=== PATIENT | male | born 1950 | race Caucasian/White ===

== ENCOUNTER 2024-05-19 18:03 | Inpatient (IN) | payer MEDICARE, OTHER ==
[~2024-05-19] VITALS: Ht 190.5 cm; Wt 117.9 kg
[~2024-05-19 18:03] MED LIST: ACYCLOVIR800 MG PO; ALPRAZOLAM1 MG PO; AMBIEN CR12.5 MG PO; DOXYCYCLINE HY100 MG PO; HYDROCHLOROTHIA25 MG PO; LEVOCETIRIZINE D5 MG PO; LISINOPRIL10 MG PO; NEXIUM40 MG PO; NORCO 5-325 TA1 EACH PO; NUVIGIL250 MG PO; POTASSIUM CHLOR8 ME1 PO; TOPIRAMATE25 MG PO
[2024-05-19 18:39] LABS: BASOPHILS % 0.2 % (0.0-1.0); EOSINOPHILS % 0.2 % (0.0-6.0); HEMATOCRIT 41.7 % (38.2-49.6); LYMPHOCYTES # (AUTO) 0.5 (1.0-3.2); LYMPHOCYTES % 4.8 % (18.0-39.1); MEAN CORPUSCULAR HEMOGLOBIN 33.2 pg (28-32); MEAN CORPUSCULAR VOLUME 92.3 fL (81-99); MONOCYTES # (AUTO) 0.3 (0.2-0.8); MONOCYTES % 2.4 % (4.4-11.3); NEUTROPHILS # (AUTO) 9.9 (2.1-6.9); PLATELET COUNT 175 x10e3/uL (140-360); RED BLOOD COUNT 4.52 x10e6/uL (4.3-5.7); RED CELL DISTRIBUTION WIDTH 12.4 % (11.7-14.4); WHITE BLOOD COUNT 10.77 x10e3/uL (4.8-10.8)
[2024-05-19] MEDS: ACETAMINOPHEN 325 MG TAB PO ONE (18:47)
[2024-05-19] MEDS: SODIUM CHLORIDE 0.9% 1000ML 1,000 ML IV ONE ×2 (18:48→20:59)
[2024-05-19 18:57] LABS: ALBUMIN 3.7 g/dL (3.5-5.0); ALBUMIN/GLOBULIN RATIO 1.3 (0.8-2.0); ANION GAP 15.5 mmol/L (8-16); BILIRUBIN,TOTAL 1.2 mg/dL (0.2-1.2); CALCIUM 8.6 mg/dL (8.4-10.2); CREATININE, SERUM 0.86 mg/dL (0.72-1.25); POTASSIUM 3.5 mmol/L (3.5-5.1); TOTAL PROTEIN 6.5 g/dL (6.5-8.1)
[2024-05-19 19:01] LABS: BILIRUBIN,URINE NEGATIVE (NEGATIVE); CLARITY,URINE CLOUDY (CLEAR); COLOR,URINE YELLOW (YELLOW); GLUCOSE, URINE NEGATIVE (NEGATIVE); KETONES,URINE NEGATIVE (NEGATIVE); LEUKOCYTE ESTERASE ,URINE 2+ (NEGATIVE); NITRITE,URINE NEGATIVE (NEGATIVE); PH,URINE 5.5 (5 - 7); PROTEIN,URINE DIPSTICK NEGATIVE (NEGATIVE); URINE UROBILINOGEN 0.2 mg/dL (0.2 - 1)
[2024-05-19 19:03] LABS: TROPONIN I 0.005 ng/mL (0-0.300)
[2024-05-19 19:04] LABS: BACTERIA,URINE MANY /HPF; EPITHELIAL CELLS,URINE FEW /LPF; RBC,URINE >50 /HPF (0-5); WBC,URINE (MAN) >50 /HPF (0-5)
[2024-05-19 19:25] LABS: INFLUENZAE A&B ANTIGEN (RAPID) NEGATIVE (NEGATIVE); RESPIRATORY SYNC. VIRUS NEGATIVE (NEGATIVE)
[2024-05-19] MEDS ORDERED: ONDANSETRON HCL INJ 2MG/ML 2ML 2 MG/ML VIAL IV PRN (20:45)
[2024-05-19 23:20] VITALS: PULSE 97; RESP 18
[2024-05-19 23:40] VITALS: TEMP 98.9
[2024-05-20] VITALS (11 sets, daily range): BP systolic 101–125; BP diastolic 62–77; PULSE 65–93; RESP 16–20; TEMP 98.2–98.7; O2SAT 96–99
[2024-05-20] MEDS ORDERED: COSOPT EYE DROP10 ML OP (00:38)
[2024-05-20] MEDS ORDERED: LIALDA1.2 GM PO (00:54)
[2024-05-20] MEDS ORDERED: SIMVASTATIN20 MG PO (00:54)
[2024-05-20] MEDS ORDERED: SIMETHICONE80 MG PO (00:54)
[2024-05-20] MEDS ORDERED: TADALAFIL5 MG PO (00:54)
[2024-05-20] MEDS ORDERED: BUMETANIDE1 MG PO (00:54)
[2024-05-20] MEDS ORDERED: LEVOTHYROXINE100 MC1 IV (00:54)
[2024-05-20] MEDS ORDERED: FLOMAX0.4 MG PO (00:54)
[2024-05-20] MEDS: ACETAMINOPHEN 325 MG TAB PO PRN (02:25)
[2024-05-20] MEDS: ACETAMIN/BUTALBITAL/CAFFEINE TAB PO PRN (04:35)
[2024-05-20 06:46] LABS: BASOPHILS # (AUTO) 0.1 (0.0-0.1); BASOPHILS % 0.3 % (0.0-1.0); EOSINOPHILS % 0.2 % (0.0-6.0); HEMATOCRIT 39.4 % (38.2-49.6); HEMOGLOBIN 13.1 g/dL (14.0-18.0); LYMPHOCYTES # (AUTO) 1.5 (1.0-3.2); LYMPHOCYTES % 7.9 % (18.0-39.1); MEAN CORPUSCULAR HEMOGLOBIN 32.6 pg (28-32); MEAN CORPUSCULAR HGB CONC 33.2 g/dL (31-35); MONOCYTES # (AUTO) 1.4 (0.2-0.8); MONOCYTES % 7.3 % (4.4-11.3); NEUTROPHILS # (AUTO) 15.4 (2.1-6.9); NEUTROPHILS % 82.7 % (38.7-80.0); PLATELET COUNT 163 x10e3/uL (140-360); RED BLOOD COUNT 4.02 x10e6/uL (4.3-5.7); RED CELL DISTRIBUTION WIDTH 12.7 % (11.7-14.4); WHITE BLOOD COUNT 18.63 x10e3/uL (4.8-10.8)
[2024-05-20 07:07] LABS: ALBUMIN 3.1 g/dL (3.5-5.0); ALBUMIN/GLOBULIN RATIO 1.3 (0.8-2.0); ANION GAP 11.5 mmol/L (8-16); BILIRUBIN,TOTAL 1.3 mg/dL (0.2-1.2); CALCIUM 7.9 mg/dL (8.4-10.2); CREATININE, SERUM 0.81 mg/dL (0.72-1.25); POTASSIUM 3.5 mmol/L (3.5-5.1); TOTAL PROTEIN 5.4 g/dL (6.5-8.1)
[2024-05-20 07:14] LABS: TROPONIN I 0.007 ng/mL (0-0.300)
[2024-05-20] MEDS: HYDROCODONE/APAP 5MG-325MG TAB PO PRN (08:47)
[2024-05-20] MEDS ORDERED: LEVOTHYROXINE100 MC1 PO (08:51)
[2024-05-20 14:43] LABS: BAND NEUTROPHILS % (MANUAL) 15 %; LYMPHOCYTES % (MANUAL) 9 % (19-48); METAMYELOCYTES % (MANUAL) 1 % (0-0); MONOCYTES % (MANUAL) 9 % (3.4-9.0); NEUTROPHILS % (MANUAL) 66 % (40-74); PLATELET ESTIMATE ADEQUATE; PLATELET MORPHOLOGY COMMENT NORMAL; RBC MORPHOLOGY COMMENT NORMAL
[2024-05-20 15:43] LABS: TROPONIN I 0.008 ng/mL (0-0.300)
[2024-05-20] MEDS: ALPRAZOLAM 0.5 MG TAB PO SCH (21:20)
[2024-05-20] MEDS: SODIUM CHLORIDE 0.9% 250ML 250 ML ONE (21:55)
[2024-05-20] MEDS: DORZOLAMIDE/TIMOLOL (OPTH SOL) 10 ML DRPETTE OP SCH (22:00)
[2024-05-21] MEDS: LEVOTHYROXINE SODIUM 100 MCG TAB PO SCH (06:17)
[2024-05-21 07:05] LABS: CREATINE KINASE 44 IU/L (30-200)
[2024-05-21 07:19] LABS: TROPONIN I < 0.001 ng/mL (0-0.300)
[2024-05-21] MEDS: PANTOPRAZOLE SOD 40 MG TABEC PO SCH (07:21)
[2024-05-21 07:54] VITALS: BP 142/67; PULSE 75; RESP 17; TEMP 100.3; O2SAT 97
[2024-05-21 08:00] VITALS: BP 142/67; PULSE 75; RESP 17; TEMP 100.3; O2SAT 97
[2024-05-21 11:40] VITALS: BP 108/72; PULSE 66; RESP 17; TEMP 98.6; O2SAT 97
[2024-05-21] MEDS ORDERED: ONDANSETRON HCL 4 MG ORAL DISINTEGRATING TAB PO PRN (14:15)
[2024-05-21 16:27] VITALS: BP 123/70; PULSE 66; RESP 19; TEMP 98.1; O2SAT 99
[2024-05-21 20:00] VITALS: BP 128/86; PULSE 63; RESP 18; TEMP 97.7; O2SAT 97
[2024-05-21 21:00] VITALS: BP 128/86; PULSE 63; RESP 18; TEMP 97.7; O2SAT 97
[2024-05-21] MEDS: MESALAMINE 400 MG CAP PO SCH (21:55)
[2024-05-21] MEDS: SIMVASTATIN 20 MG TAB PO SCH (21:55)
[2024-05-22] VITALS (7 sets, daily range): BP systolic 112–137; BP diastolic 72–79; PULSE 58–72; RESP 17–20; TEMP 97.9–98.6; O2SAT 96–99
[2024-05-22] MEDS ORDERED: NON-FORMULARY MEDICATION (Potassium Chloride 8 MEQ) PO SCH (09:00)
[2024-05-22] MEDS: BUMETANIDE 1 MG TAB PO SCH (09:13)
[2024-05-22] MEDS: TAMSULOSIN HCL 0.4 MG CAP PO SCH (09:14)
[2024-05-22] MEDS: LORATADINE 10 MG TAB PO SCH (09:14)
[2024-05-22] MEDS: SIMETHICONE 80 MG CHEW PO SCH (09:14)
[2024-05-22] MEDS: ZOLPIDEM TARTRATE 5 MG TAB PO PRN (20:53)
[2024-05-22] MEDS ORDERED: NON-FORMULARY MEDICATION (Tadalafil 5 MG) PO SCH (21:00)
[2024-05-22] MEDS: POTASSIUM CHLORIDE 10MEQ EA PO ONE (22:42)
[2024-05-23] VITALS (8 sets, daily range): BP systolic 112–139; BP diastolic 67–95; PULSE 57–68; RESP 17–19; TEMP 97.8–98.3; O2SAT 94–100
[2024-05-23 06:14] LABS: BASOPHILS # (AUTO) 0.1 (0.0-0.1); BASOPHILS % 0.8 % (0.0-1.0); EOSINOPHILS # (AUTO) 0.2 (0.0-0.4); EOSINOPHILS % 2.9 % (0.0-6.0); HEMATOCRIT 39.7 % (38.2-49.6); HEMOGLOBIN 13.2 g/dL (14.0-18.0); LYMPHOCYTES # (AUTO) 1.4 (1.0-3.2); LYMPHOCYTES % 22.3 % (18.0-39.1); MEAN CORPUSCULAR HEMOGLOBIN 32.2 pg (28-32); MEAN CORPUSCULAR HGB CONC 33.2 g/dL (31-35); MEAN CORPUSCULAR VOLUME 96.8 fL (81-99); MONOCYTES # (AUTO) 0.7 (0.2-0.8); MONOCYTES % 11.9 % (4.4-11.3); NEUTROPHILS # (AUTO) 3.8 (2.1-6.9); NEUTROPHILS % 61.6 % (38.7-80.0); PLATELET COUNT 180 x10e3/uL (140-360); RED CELL DISTRIBUTION WIDTH 12.6 % (11.7-14.4); WHITE BLOOD COUNT 6.22 x10e3/uL (4.8-10.8)
[2024-05-23 06:25] LABS: BILIRUBIN,DIRECT 0.3 mg/dL (0.0-0.5); BILIRUBIN,INDIRECT 0.2 mg/dL (0.3-1.2); BILIRUBIN,TOTAL 0.5 mg/dL (0.2-1.2)
[2024-05-23 06:29] LABS: ANION GAP 12.8 mmol/L (8-16); BILIRUBIN,TOTAL 0.5 mg/dL (0.2-1.2); CALCIUM 8.4 mg/dL (8.4-10.2); CREATININE, SERUM 0.77 mg/dL (0.72-1.25); MAGNESIUM 1.8 MG/DL (1.3-2.1); PHOSPHORUS 3.1 MG/DL (2.3-4.7); POTASSIUM 3.8 mmol/L (3.5-5.1)
[2024-05-23 06:58] LABS: CHOL/HDL RATIO 3.3 (3.9-4.7)
[2024-05-23] MEDS ORDERED: MAALOX/LIDOCAINE/BENADRYL/NYST 30 ML BTL PO SCH (09:00)
[2024-05-23] MEDS: FLUTICASONE PROPIONATE NASAL SPRAY NS PRN (12:08)
[2024-05-23] MEDS: MAALOX/LIDOCAINE/BENADRYL/NYST 30 ML BTL PO SCH (12:16)
[2024-05-23] MEDS: POTASSIUM CHLORIDE 10MEQ EA PO SCH (16:54)
[2024-05-24] VITALS (7 sets, daily range): BP systolic 119–133; BP diastolic 62–92; PULSE 60–81; RESP 17–20; TEMP 97.8–98.4; O2SAT 94–100
[2024-05-24] MEDS ORDERED: MIDAZOLAM HCL 2 MG/2 ML VIAL ONE (13:02)
[2024-05-24] MEDS ORDERED: FENTANYL CITRATE/PF 100MCG/2 ML INJ ONE (13:02)
[2024-05-24] MEDS ORDERED: PROPOFOL IV EMULSION 10 MG/ML 20 ML VIAL ONE (13:27)
[2024-05-24] MEDS ORDERED: LIDOCAINE HCL 2% LOCAL INJ 5 ML SDV VIAL INJ ONE (13:27)
[2024-05-24] MEDS: METOCLOPRAMIDE HCL 10 MG/2ML VIAL ONE (14:26)
[2024-05-25] VITALS: BP 116/77; PULSE 66; RESP 20; TEMP 99.3; O2SAT 93
[2024-05-25 04:00] VITALS: BP 153/80; PULSE 60; RESP 21; TEMP 97.5; O2SAT 98
[2024-05-25 07:51] VITALS: BP 137/88; PULSE 58; RESP 18; TEMP 98.1; O2SAT 98
[2024-05-25 09:00] VITALS: BP 137/88; PULSE 58; RESP 18; TEMP 98.1; O2SAT 98
[2024-05-25 11:24] VITALS: BP 121/80; PULSE 58; RESP 18; TEMP 97.7; O2SAT 98
[2024-05-25 15:36] VITALS: BP 128/81; PULSE 59; RESP 18; TEMP 98.3; O2SAT 98
== END 2024-05-25 16:37 | disposition home or self-care (01) | DRG 872 ==
LOC: ER 18:10 → ERHOLD 20:37 → MED/SURG 23:50 → OBSVTOIN 05-20 14:49
PROVIDERS: ADMIT Internal Medicine; ATTEND Internal Medicine
PROC: 3E03329 Introduction of Other Anti-infective into Peripheral Vein, Percutaneous Approach (ICD-10-PCS; 2024-05-19)
PROC: 0DB78ZX Excision of Stomach, Pylorus, Via Natural or Artificial Opening Endoscopic, Diagnostic (ICD-10-PCS; 2024-05-24)
PROC: 0D778ZZ Dilation of Stomach, Pylorus, Via Natural or Artificial Opening Endoscopic (ICD-10-PCS; 2024-05-24)
PROC: 0D748ZZ Dilation of Esophagogastric Junction, Via Natural or Artificial Opening Endoscopic (ICD-10-PCS; 2024-05-24)
PROC: 0DB68ZZ Excision of Stomach, Via Natural or Artificial Opening Endoscopic (ICD-10-PCS; principal; 2024-05-24 11:35)
PROC: 0DB98ZX Excision of Duodenum, Via Natural or Artificial Opening Endoscopic, Diagnostic (ICD-10-PCS; 2024-05-24 11:35)
DX: A41.51 Sepsis due to Escherichia coli [E. coli] (principal); N39.0 Urinary tract infection, site not specified; K31.1 Adult hypertrophic pyloric stenosis; R65.20 Severe sepsis without septic shock; E86.0 Dehydration; N20.0 Calculus of kidney; E87.6 Hypokalemia; E83.51 Hypocalcemia; K22.2 Esophageal obstruction; K20.90 Esophagitis, unspecified without bleeding; K44.9 Diaphragmatic hernia without obstruction or gangrene; K29.50 Unspecified chronic gastritis without bleeding; K31.7 Polyp of stomach and duodenum; R31.29 Other microscopic hematuria; I10 Essential (primary) hypertension; K21.9 Gastro-esophageal reflux disease without esophagitis; I45.10 Unspecified right bundle-branch block; T67.3XXA Heat exhaustion, anhydrotic, initial encounter; X30.XXXA Exposure to excessive natural heat, initial encounter; Y93.H2 Activity, gardening and landscaping; Y92.007 Garden or yard of unspecified non-institutional (private) residence as the place of occurrence of the external cause; R51.9 Headache, unspecified; R00.0 Tachycardia, unspecified; N40.0 Benign prostatic hyperplasia without lower urinary tract symptoms; E78.5 Hyperlipidemia, unspecified; E66.9 Obesity, unspecified; Z68.32 Body mass index [BMI] 32.0-32.9, adult; Z71.3 Dietary counseling and surveillance; E03.9 Hypothyroidism, unspecified; K12.0 Recurrent oral aphthae; K76.0 Fatty (change of) liver, not elsewhere classified; R05.9 Cough, unspecified; R06.2 Wheezing; I34.0 Nonrheumatic mitral (valve) insufficiency; N28.1 Cyst of kidney, acquired; H40.9 Unspecified glaucoma; Z87.891 Personal history of nicotine dependence; Z11.52 Encounter for screening for COVID-19; Z79.899 Other long term (current) drug therapy
CPT/HCPCS: 36415; 43239; 43450; 70450; 71045; 74176; 76705; 76870; 80053; 80061; 81001; 82248; 82550; 83605; 83735; 84100; 84155; 84484; 85025; 87040; 87071; 87086; 87186; 87205; 87400; 87420; 88305; 88342; 93005; 93306; 93976; 94799; 99284; G0378; J0696; J2001; J2250; J2543; J2765; J7030; J7050; U0002

== ENCOUNTER 2024-11-07 01:35 | Inpatient (IN) | payer MEDICARE, OTHER ==
[~2024-11-07] VITALS: Ht 190.5 cm; Wt 117.9 kg
[2024-11-07] VITALS (15 sets, daily range): BP systolic 92–125; BP diastolic 57–91; PULSE 72–111; RESP 15–22; TEMP 97.5–99.8; O2SAT 96–100
[~2024-11-07 01:35] MED LIST changes: +BUMETANIDE1 MG PO; +COSOPT EYE DROP10 ML OU; +FLOMAX0.4 MG PO; +LEVOTHYROXINE100 MC1 IV; +LEVOTHYROXINE100 MC1 PO; +LIALDA1.2 GM PO; +SIMETHICONE80 MG PO; +SIMVASTATIN20 MG PO; +TADALAFIL5 MG PO
[2024-11-07] MEDS ORDERED: ACETAMINOPHEN 325 MG TAB PO STA (01:44)
[2024-11-07] MEDS: ACETAMINOPHEN 325 MG TAB PO STA (01:58)
[2024-11-07] MEDS: SODIUM CHLORIDE 0.9% 1000ML 1,000 ML IV STA (01:58)
[2024-11-07 02:08] LABS: BASOPHILS % 0.3 % (0.0-1.0); EOSINOPHILS % 0.2 % (0.0-6.0); HEMOGLOBIN 15.1 g/dL (14.0-18.0); LYMPHOCYTES # (AUTO) 0.9 (1.0-3.2); LYMPHOCYTES % 6.4 % (18.0-39.1); MEAN CORPUSCULAR HEMOGLOBIN 33.2 pg (28-32); MEAN CORPUSCULAR HGB CONC 32.8 g/dL (31-35); MEAN CORPUSCULAR VOLUME 101.1 fL (81-99); MONOCYTES # (AUTO) 1.2 (0.2-0.8); MONOCYTES % 8.5 % (4.4-11.3); NEUTROPHILS # (AUTO) 12.2 (2.1-6.9); PLATELET COUNT 199 x10e3/uL (140-360); RED BLOOD COUNT 4.55 x10e6/uL (4.3-5.7); RED CELL DISTRIBUTION WIDTH 12.5 % (11.7-14.4); WHITE BLOOD COUNT 14.58 x10e3/uL (4.8-10.8)
[2024-11-07 02:24] LABS: ALBUMIN/GLOBULIN RATIO 1.4 (0.8-2.0); ANION GAP 14.2 mmol/L (8-16); BILIRUBIN,TOTAL 0.9 mg/dL (0.2-1.2); CALCIUM 8.6 mg/dL (8.4-10.2); CREATININE, SERUM 0.84 mg/dL (0.72-1.25); POTASSIUM 4.2 mmol/L (3.5-5.1); TOTAL PROTEIN 6.8 g/dL (6.5-8.1)
[2024-11-07 02:35] LABS: BILIRUBIN,URINE NEGATIVE (NEGATIVE); CLARITY,URINE CLEAR (CLEAR); COLOR,URINE YELLOW (YELLOW); GLUCOSE, URINE NEGATIVE (NEGATIVE); KETONES,URINE NEGATIVE (NEGATIVE); LEUKOCYTE ESTERASE ,URINE SMALL (NEGATIVE); NITRITE,URINE NEGATIVE (NEGATIVE); PH,URINE 8 (5 - 7); PROTEIN,URINE DIPSTICK TRACE (NEGATIVE); URINE UROBILINOGEN 0.2 mg/dL (0.2 - 1)
[2024-11-07 02:41] LABS: B-TYPE NATRIURETIC PEPTIDE2 27.1 pg/mL (0-100)
[2024-11-07 02:47] LABS: TROPONIN I 0.002 ng/mL (0-0.300)
[2024-11-07 02:49] LABS: CORONAVIRUS COVID-19 AG NEGATIVE (NEGATIVE); INFLUENZA A AG NEGATIVE (NEGATIVE); INFLUENZA B AG NEGATIVE (NEGATIVE); STREPTOCOCCUS GRP A ANTIGEN NEGATIVE (NEGATIVE)
[2024-11-07 03:15] LABS: BACTERIA,URINE MANY /HPF; WBC,URINE (MAN) 21-50 /HPF (0-5)
[2024-11-07 03:16] LABS: EPITHELIAL CELLS,URINE RARE /LPF
[2024-11-07] MEDS: Morphine 4mg INJECTION 4 MG/ML INJ IV STA (03:46)
[2024-11-07] MEDS: SODIUM CHLORIDE 0.9% 1000ML 1,000 ML IV SCH ×2 (03:46→23:30)
[2024-11-07] MEDS ORDERED: IBUPROFEN 600 MG TAB ONE (04:50)
[2024-11-07] MEDS: IBUPROFEN 600 MG TAB PO STA (05:08)
[2024-11-07] MEDS ORDERED: GABAPENTIN300 MG PO (06:01)
[2024-11-07] MEDS ORDERED: FINASTERIDE5 MG PO (06:01)
[2024-11-07] MEDS ORDERED: VALACYCLOVIR500 MG PO (06:01)
[2024-11-07] MEDS ORDERED: MELOXICAM7.5 MG PO (06:01)
[2024-11-07] MEDS ORDERED: METOPROLOL SUCC25 MG PO (06:01)
[2024-11-07] MEDS ORDERED: MODAFINIL200 MG PO (06:01)
[2024-11-07] MEDS ORDERED: OMEPRAZOLE40 MG PO (06:01)
[2024-11-07] MEDS ORDERED: NITROGLYCERIN0.4 MG SL (06:01)
[2024-11-07] MEDS ORDERED: DUTASTERIDE0.5 MG PO (06:01)
[2024-11-07] MEDS ORDERED: POLYETHYLENE GLYCOL 3350 17 GM PACK PO PRN (07:45)
[2024-11-07] MEDS ORDERED: HYDRALAZINE HCL 20 MG/ML VIAL IV PRN (07:45)
[2024-11-07] MEDS: DOCUSATE SODIUM 100 MG CAP PO SCH (09:00)
[2024-11-07] MEDS: FAMOTIDINE 20 MG TAB PO SCH (09:19)
[2024-11-07 09:36] LABS: CHOL/HDL RATIO 3.1 (3.9-4.7); MAGNESIUM 1.6 MG/DL (1.3-2.1); PHOSPHORUS 2.3 MG/DL (2.3-4.7)
[2024-11-07] MEDS: ACETAMINOPHEN 325 MG TAB PO PRN (09:51)
[2024-11-07] MEDS: ONDANSETRON HCL INJ 2MG/ML 2ML 2 MG/ML VIAL IV PRN (09:58)
[2024-11-07 10:24] LABS: FREE T4 (FREE THYROXINE) 1.07 ng/dL (0.8-1.8); THYROID STIMULATING HORMONE 0.906 uIU/mL (0.350-4.940)
[2024-11-07] MEDS: MAGNESIUM SULFATE 2GM/50ML 50 ML IV ONE (10:53)
[2024-11-07] MEDS ORDERED: ZOLPIDEM TARTRATE 6.25 MG PO PRN (11:00)
[2024-11-07] MEDS: FINASTERIDE 5 MG TAB PO SCH (11:00)
[2024-11-07] MEDS ORDERED: HYDROCODONE/APAP 5MG-325MG TAB PO PRN (11:00)
[2024-11-07] MEDS ORDERED: NITROGLYCERIN 0.4 MG SUBL SL PRN (11:00)
[2024-11-07 11:12] LABS: TROPONIN I 0.007 ng/mL (0-0.300)
[2024-11-07] MEDS: PANTOPRAZOLE SOD 40 MG TABEC PO SCH (13:30)
[2024-11-07] MEDS: LEVALBUTEROL HCL SOLN NEBU 1.25 MG/3 ML NEB INH SCH (13:38)
[2024-11-07] MEDS: LORATADINE 10 MG TAB PO SCH (14:04)
[2024-11-07] MEDS: MODAFINIL 100 MG TAB PO SCH (14:04)
[2024-11-07] MEDS: SIMETHICONE 80 MG CHEW PO SCH (14:04)
[2024-11-07] MEDS: MESALAMINE 400 MG CAP PO SCH (14:05)
[2024-11-07] MEDS: DUTASTERIDE 0.5 MG CAP PO SCH (14:05)
[2024-11-07] MEDS: METOPROLOL SUCCINATE 25 MG TAB XL PO SCH (14:06)
[2024-11-07] MEDS: MELOXICAM 7.5 MG TAB PO SCH (17:16)
[2024-11-07] MEDS: DORZOLAMIDE/TIMOLOL (OPTH SOL) 10 ML DRPETTE OP SCH (17:52)
[2024-11-07] MEDS: Morphine 4mg INJECTION 4 MG/ML INJ IV PRN (20:24)
[2024-11-07] MEDS ORDERED: NON-FORMULARY MEDICATION (Tadalafil 5 MG) PO SCH (21:00)
[2024-11-07] MEDS: TAMSULOSIN HCL 0.4 MG CAP PO SCH (21:07)
[2024-11-07] MEDS: GABAPENTIN 300 MG CAP PO SCH (21:08)
[2024-11-07] MEDS: ALPRAZOLAM 0.5 MG TAB PO SCH (21:08)
[2024-11-07] MEDS: SIMVASTATIN 20 MG TAB PO SCH (21:10)
[2024-11-07] MEDS: ZOLPIDEM TARTRATE 5 MG TAB PO PRN (21:10)
[2024-11-08] VITALS (11 sets, daily range): BP systolic 115–141; BP diastolic 61–70; PULSE 73–94; RESP 20–21; TEMP 98.1–99.2; O2SAT 93–99
[2024-11-08 06:36] LABS: BASOPHILS # (AUTO) 0.1 (0.0-0.1); BASOPHILS % 0.4 % (0.0-1.0); EOSINOPHILS % 0.1 % (0.0-6.0); HEMATOCRIT 39.5 % (38.2-49.6); HEMOGLOBIN 12.7 g/dL (14.0-18.0); LYMPHOCYTES # (AUTO) 0.8 (1.0-3.2); LYMPHOCYTES % 6.9 % (18.0-39.1); MEAN CORPUSCULAR HEMOGLOBIN 33.2 pg (28-32); MEAN CORPUSCULAR HGB CONC 32.2 g/dL (31-35); MEAN CORPUSCULAR VOLUME 103.1 fL (81-99); MONOCYTES # (AUTO) 0.9 (0.2-0.8); MONOCYTES % 8.3 % (4.4-11.3); NEUTROPHILS # (AUTO) 9.5 (2.1-6.9); NEUTROPHILS % 83.6 % (38.7-80.0); PLATELET COUNT 149 x10e3/uL (140-360); RED BLOOD COUNT 3.83 x10e6/uL (4.3-5.7); RED CELL DISTRIBUTION WIDTH 12.8 % (11.7-14.4); WHITE BLOOD COUNT 11.32 x10e3/uL (4.8-10.8)
[2024-11-08 07:01] LABS: ALBUMIN 2.8 g/dL (3.5-5.0); BILIRUBIN,TOTAL 1.1 mg/dL (0.2-1.2); CALCIUM 7.9 mg/dL (8.4-10.2); CREATININE, SERUM 0.76 mg/dL (0.72-1.25); TOTAL PROTEIN 5.6 g/dL (6.5-8.1)
[2024-11-08 07:40] LABS: TROPONIN I 0.052 ng/mL (0-0.300)
[2024-11-09] VITALS (8 sets, daily range): BP systolic 105–133; BP diastolic 52–80; PULSE 63–82; RESP 18–20; TEMP 97.6–98.8; O2SAT 96–100
[2024-11-09] MEDS: MAGNESIUM SULF 1GRAM/DEXTROSE 100 ML IV ONE (09:23)
[2024-11-09] MEDS ORDERED: CEFUROXIME250 MG PO (16:52)
[2024-11-09] MEDS ORDERED: ACETAMINOPHEN325 M1 PO (16:52)
[2024-11-09] MEDS ORDERED: ONDANSETRON ODT4 MG PO (16:52)
[2024-11-09] MEDS ORDERED: ONDANSETRON HCL 4 MG ORAL DISINTEGRATING TAB PO PRN (18:30)
== END 2024-11-09 18:30 | disposition home or self-care (01) | DRG 872 ==
LOC: ER 01:38 → ERHOLD 03:19 → MED/SURG3 05:07
PROVIDERS: ADMIT Internal Medicine; ATTEND Internal Medicine
PROC: 3E0333Z Introduction of Anti-inflammatory into Peripheral Vein, Percutaneous Approach (ICD-10-PCS; principal; 2024-11-07)
DX: A41.50 Gram-negative sepsis, unspecified (principal); N10 Acute pyelonephritis; N39.0 Urinary tract infection, site not specified; E03.9 Hypothyroidism, unspecified; E86.0 Dehydration; I10 Essential (primary) hypertension; E78.5 Hyperlipidemia, unspecified; E83.42 Hypomagnesemia; I45.4 Nonspecific intraventricular block; R00.2 Palpitations; R09.02 Hypoxemia; R53.81 Other malaise; N40.1 Benign prostatic hyperplasia with lower urinary tract symptoms; R35.0 Frequency of micturition; R39.15 Urgency of urination; F41.9 Anxiety disorder, unspecified; R06.82 Tachypnea, not elsewhere classified; R11.10 Vomiting, unspecified; R51.9 Headache, unspecified; M15.9 Polyosteoarthritis, unspecified; H40.9 Unspecified glaucoma; E66.9 Obesity, unspecified; Z68.32 Body mass index [BMI] 32.0-32.9, adult; Z11.52 Encounter for screening for COVID-19; Z79.890 Hormone replacement therapy; Z85.828 Personal history of other malignant neoplasm of skin; Z80.8 Family history of malignant neoplasm of other organs or systems; Z82.49 Family history of ischemic heart disease and other diseases of the circulatory system; Z82.41 Family history of sudden cardiac death
CPT/HCPCS: 36415; 70450; 71045; 80053; 80061; 81001; 82550; 83036; 83518; 83605; 83690; 83735; 83880; 84100; 84439; 84443; 84484; 85025; 87040; 87070; 87086; 87186; 93005; 94640; 94799; 99284; J2270; J2405; J2543; J3475; J7030

== ENCOUNTER → 2024-11-15 | Outpatient (REF) | payer MEDICARE, OTHER ==
[~2024-11-15] MED LIST changes: +ACETAMINOPHEN325 M1 PO; +CEFUROXIME250 MG PO; +DUTASTERIDE0.5 MG PO; +FINASTERIDE5 MG PO; +GABAPENTIN300 MG PO; +IOPAMIDOL 370 MG/ML 100 ML INFUS..BTL INJ ONE; +MELOXICAM7.5 MG PO; +METOPROLOL SUCC25 MG PO; +METOPROLOL TARTRATE INJ 1 MG/ML VIAL ONE; +MODAFINIL200 MG PO; +NITROGLYCERIN 0.4 MG SUBL ONE; +NITROGLYCERIN0.4 MG SL; +OMEPRAZOLE40 MG PO; +ONDANSETRON ODT4 MG PO; +SODIUM CHLORIDE 0.9% 100 ML ONE; +VALACYCLOVIR500 MG PO
[2024-11-15 08:39] LABS: CREATININE, SERUM 0.7 mg/dL (0.72-1.25)
== END ==
LOC: CT 07:37
PROVIDERS: ATTEND Internal Medicine Cardiovascular Disease
DX: I20.89 Other forms of angina pectoris (principal); I49.3 Ventricular premature depolarization
CPT/HCPCS: 36415; 75574; 82565; 84520; J7050; Q9967

== ENCOUNTER 2025-01-01 07:49 | Day surgery (SDC) | payer MEDICARE, OTHER ==
[2024-12-14 14:55] LABS: BASOPHILS % 0.6 % (0.0-1.0); EOSINOPHILS # (AUTO) 0.2 (0.0-0.4); HEMATOCRIT 44.5 % (38.2-49.6); HEMOGLOBIN 13.8 g/dL (14.0-18.0); LYMPHOCYTES # (AUTO) 1.6 (1.0-3.2); LYMPHOCYTES % 23.7 % (18.0-39.1); MEAN CORPUSCULAR HEMOGLOBIN 32.5 pg (28-32); MEAN CORPUSCULAR VOLUME 104.7 fL (81-99); MONOCYTES # (AUTO) 0.6 (0.2-0.8); MONOCYTES % 9.1 % (4.4-11.3); NEUTROPHILS # (AUTO) 4.3 (2.1-6.9); NEUTROPHILS % 63.2 % (38.7-80.0); PLATELET COUNT 158 x10e3/uL (140-360); RED BLOOD COUNT 4.25 x10e6/uL (4.3-5.7); RED CELL DISTRIBUTION WIDTH 12.4 % (11.7-14.4); WHITE BLOOD COUNT 6.72 x10e3/uL (4.8-10.8)
[2024-12-14 15:07] LABS: INR 0.94; PARTIAL THROMBOPLASTIN TIME 25.2 seconds (23.8-35.5); PROTHROMBIN TIME 13.2 seconds (11.9-14.5)
[2024-12-14 15:17] LABS: ALBUMIN 3.4 g/dL (3.5-5.0); ALBUMIN/GLOBULIN RATIO 1.1 (0.8-2.0); ANION GAP 13.2 mmol/L (8-16); BILIRUBIN,TOTAL 0.7 mg/dL (0.2-1.2); CALCIUM 8.6 mg/dL (8.4-10.2); CHOL/HDL RATIO 3.1 (3.9-4.7); CREATININE, SERUM 0.74 mg/dL (0.72-1.25); POTASSIUM 4.2 mmol/L (3.5-5.1); TOTAL PROTEIN 6.4 g/dL (6.5-8.1)
[2025-01-01] VITALS (13 sets, daily range): BP systolic 120–139; BP diastolic 75–88; PULSE 64–81; RESP 15–21; TEMP 97–97.9; O2SAT 95–100
[~2025-01-01] VITALS: Ht 190.5 cm; Wt 124.7 kg
[~2025-01-01 07:49] MED LIST changes: +ACETAMINOPHEN-1 EAC3; +CELEBREX200 MG PO; +FUROSEMIDE40 MG PO; -IOPAMIDOL 370 MG/ML 100 ML INFUS..BTL INJ ONE; +LEVOFLOXACIN250 MG PO; -METOPROLOL TARTRATE INJ 1 MG/ML VIAL ONE; -NITROGLYCERIN 0.4 MG SUBL ONE; +REVATIO20 MG PO; -SODIUM CHLORIDE 0.9% 100 ML ONE
[2025-01-01] MEDS ORDERED: VERAPAMIL HCL 2.5 MG/ML 2 ML VIAL ONE (08:04)
[2025-01-01] MEDS ORDERED: HEPARIN SOD/SOD CHLORIDE 2,000 ML ONE (08:04)
[2025-01-01] MEDS ORDERED: IOPAMIDOL 370 MG/ML 100 ML INFUS..BTL INJ ONE ×2 (08:04→09:36)
[2025-01-01] MEDS ORDERED: HEPARIN SOD (PORCINE) 1000 UNIT/ML 30ML ONE (08:04)
[2025-01-01] MEDS ORDERED: LIDOCAINE HCL 2% LOCAL 20 ML VIAL ONE (08:04)
[2025-01-01] MEDS ORDERED: SODIUM CHLORIDE 0.9% 1000ML 1,000 ML ONE ×2 (08:05→09:29)
[2025-01-01] MEDS ORDERED: NITROGLYCERIN/D5W 200 MCG/ML 250 ML ONE (08:05)
[2025-01-01] MEDS ORDERED: FENTANYL CITRATE/PF 100MCG/2 ML INJ ONE (08:49)
[2025-01-01] MEDS ORDERED: MIDAZOLAM HCL 2 MG/2 ML VIAL ONE (08:49)
[2025-01-01] MEDS ORDERED: ASPIRIN 325 MG TAB ONE (09:44)
[2025-01-01] MEDS ORDERED: CLOPIDOGREL BISULFATE 75 MG TAB ONE (09:45)
== END 2025-01-01 13:00 | disposition home or self-care (01) ==
LOC: CATH LAB 07:49
PROVIDERS: ATTEND Internal Medicine Cardiovascular Disease
DX: I25.10 Atherosclerotic heart disease of native coronary artery without angina pectoris (principal); I10 Essential (primary) hypertension; E78.00 Pure hypercholesterolemia, unspecified; Z11.52 Encounter for screening for COVID-19; Z01.810 Encounter for preprocedural cardiovascular examination; Z01.812 Encounter for preprocedural laboratory examination; Z79.1 Long term (current) use of non-steroidal anti-inflammatories (NSAID); Z79.899 Other long term (current) drug therapy
CPT/HCPCS: 36415; 76937; 80053; 80061; 85025; 85610; 85730; 93005; C1769; C1874; C1887; C9600; J1644; J2003; J2250; J3010; J7030; Q9967; U0002; 92928; 93458; 99152; 99153